=== PATIENT | female | born 1930 | race Caucasian/White ===

== ENCOUNTER 2017-09-11 13:20 | Inpatient (IN) | payer MEDICARE, MEDICAID ==
[2017-09-11 14:56] LABS: ADD MAN DIFF? NO
[2017-09-11 15:01] LABS: BASOPHILS % 0.2 % (0.0-2.0); EOSINOPHILS % 0.1 % (0.0-7.0); HEMOGLOBIN 12.7 g/dl (12.0-16.0); LYMPHOCYTES # 1.1 10^3/ul (0.8-2.9); LYMPHOCYTES % 8.9 % (15.0-51.0); MEAN CORPUSCULAR HEMOGLOBIN 30.5 pg (29.0-33.0); MEAN CORPUSCULAR HGB CONC 33.4 g/dl (32.0-37.0); MEAN CORPUSCULAR VOLUME 91.1 fl (82.0-101.0); MEAN PLATELET VOLUME 10.2 fl (7.4-10.4); MONOCYTE # 0.5 10^3/ul (0.3-0.9); MONOCYTES % 3.8 % (0.0-11.0); NEUTROPHIL # 10.6 10^3/ul (1.6-7.5); NEUTROPHILS % 86.3 % (39.0-77.0); PLATELET COUNT 321 10^3/UL (140-415); RED BLOOD COUNT 4.17 10^6/ul (4.20-5.40); RED CELL DISTRIBUTION WIDTH 14.8 % (11.5-14.5)
[2017-09-11 15:01] LABS: WHITE BLOOD COUNT 12.3 10^3/ul (4.8-10.8)
[2017-09-11] MEDS: ASPIRIN 325 MG TAB PO (15:01)
[2017-09-11 15:15] LABS: INR 0.93; PROTIME 12.5 Sec (11.9-14.9)
[2017-09-11 15:16] LABS: PARTIAL THROMBOPLASTIN TIME 24.8 Sec (25.0-35.0)
[2017-09-11 15:22] LABS: ALANINE AMINOTRANSFERASE 29 IU/L (13-69); ALBUMIN 3.4 g/dl (3.3-4.9); ALBUMIN/GLOBULIN RATIO 1.06; ALKALINE PHOSPHATASE 119 IU/L (42-121); ANION GAP 11 (8-16); ASPARTATE AMINO TRANSFERASE 28 IU/L (15-46); BILIRUBIN,INDIRECT 0.1 mg/dl (0-1.1); BILIRUBIN,TOTAL 0.1 mg/dl (0.2-1.3); BLOOD UREA NITROGEN 15 mg/dl (7-20); CALCIUM 11.3 mg/dl (8.4-10.2); CARBON DIOXIDE 29 mmol/L (21-31); CHLORIDE 101 mmol/L (97-110); CREATININE 1.01 mg/dl (0.44-1.00); GLUCOSE 132 mg/dl (70-220); SODIUM 137 mmol/L (135-144); TOTAL PROTEIN 6.6 g/dl (6.1-8.1)
[2017-09-11 15:32] LABS: TROPONIN-I 0.018 ng/ml (0.00-0.12)
[2017-09-11 17:46] LABS: ADD UMIC YES; UR ASCORBIC ACID NEGATIVE (NEGATIVE); UR BACTERIA FEW /HPF (NONE SEEN); UR BILIRUBIN (Dip) NEGATIVE (NEGATIVE); UR BLOOD (Dip) NEGATIVE (NEGATIVE); UR CLARITY SLIGHTLY CLOUDY (CLEAR); UR COLOR YELLOW (YELLOW); UR GLUCOSE (Dip) NEGATIVE (NEGATIVE); UR KETONES (Dip) NEGATIVE (NEGATIVE); UR LEUKOCYTE ESTERASE (Dip) 1+ Leu/ul (NEGATIVE); UR NITRITE (Dip) NEGATIVE (NEGATIVE); UR RBC 1 /HPF (0-5); UR SPECIFIC GRAVITY (Dip) 1.009 (1.003-1.030); UR TOTAL PROTEIN (Dip) 1+ mg/dl (NEGATIVE); UR UROBILINOGEN (Dip) NEGATIVE (NEGATIVE); UR WBC 13 /HPF (0-5)
[2017-09-11] MEDS: HYDROCODONE/APAP (5/325) TAB PO (18:00)
[2017-09-11] MEDS: LABETALOL HCL 20MG INJ IV ×2 (18:33→20:22)
[2017-09-11] MEDS: CEFTRIAXONE 1 GM/50 ML (PMX) 50 ML IVPB (19:34)
[2017-09-11 20:06] LABS: B-TYPE NATRIURETIC PEPTIDE 5560 PG/ML (0-450)
[2017-09-11] MEDS ORDERED: ONDANSETRON 4 MG INJ IV ×2 (21:30)
[2017-09-11] MEDS ORDERED: NACL 0.9% 3 ML SYG IV (21:30)
[2017-09-11] MEDS ORDERED: ACETAMINOPHEN 325 MG TAB PO (21:30)
[2017-09-11] MEDS: FUROSEMIDE 40 MG INJ IV (21:39)
[2017-09-11 22:24] LABS: CREATINE KINASE < 20 IU/L (23-200)
[2017-09-11 22:29] LABS: CK-MB 0.77 ng/ml (0.0-2.4); TROPONIN-I 0.039 ng/ml (0.00-0.12)
[2017-09-11] MEDS: hydrALAzine 20 MG INJ IV (23:11)
[2017-09-11] MEDS: ACETAMINOPHEN 325 MG TAB PO (23:11)
[2017-09-12 03:56] LABS: CREATINE KINASE < 20 IU/L (23-200)
[2017-09-12 03:59] LABS: CK-MB 0.65 ng/ml (0.0-2.4); TROPONIN-I 0.037 ng/ml (0.00-0.12)
[2017-09-12] MEDS: ACETAMINOPHEN 325 MG TAB PO ×2 (05:50→11:06)
[2017-09-12 06:28] LABS: ADD MAN DIFF? NO
[2017-09-12 06:31] LABS: BASOPHILS % 0.2 % (0.0-2.0); EOSINOPHILS % 0.2 % (0.0-7.0); HEMATOCRIT 33.4 % (37.0-47.0); HEMOGLOBIN 11.2 g/dl (12.0-16.0); LYMPHOCYTES # 1.9 10^3/ul (0.8-2.9); LYMPHOCYTES % 16.8 % (15.0-51.0); MEAN CORPUSCULAR HEMOGLOBIN 30.6 pg (29.0-33.0); MEAN CORPUSCULAR HGB CONC 33.5 g/dl (32.0-37.0); MEAN CORPUSCULAR VOLUME 91.3 fl (82.0-101.0); MEAN PLATELET VOLUME 10.2 fl (7.4-10.4); MONOCYTE # 0.7 10^3/ul (0.3-0.9); MONOCYTES % 5.9 % (0.0-11.0); NEUTROPHIL # 8.5 10^3/ul (1.6-7.5); NEUTROPHILS % 76.4 % (39.0-77.0); PLATELET COUNT 277 10^3/UL (140-415); RED BLOOD COUNT 3.66 10^6/ul (4.20-5.40); RED CELL DISTRIBUTION WIDTH 14.8 % (11.5-14.5)
[2017-09-12 06:31] LABS: WHITE BLOOD COUNT 11.1 10^3/ul (4.8-10.8)
[2017-09-12 07:09] LABS: ALANINE AMINOTRANSFERASE 22 IU/L (13-69); ALBUMIN 2.8 g/dl (3.3-4.9); ALKALINE PHOSPHATASE 98 IU/L (42-121); ANION GAP 11 (8-16); ASPARTATE AMINO TRANSFERASE 28 IU/L (15-46); BLOOD UREA NITROGEN 17 mg/dl (7-20); CALCIUM 10.3 mg/dl (8.4-10.2); CARBON DIOXIDE 27 mmol/L (21-31); CHLORIDE 101 mmol/L (97-110); CHOL/HDL RATIO 1.8 RATIO; CHOLESTEROL 136 mg/dl (100-200); CREATININE 1.06 mg/dl (0.44-1.00); GLUCOSE 102 mg/dl (70-220); HDL CHOLESTEROL 74 mg/dl (33-92); LDL CHOLESTEROL,CALCULATED 45 mg/dl; MAGNESIUM 1.3 mg/dl (1.7-2.5); POTASSIUM 3.8 mmol/L (3.5-5.1); SODIUM 135 mmol/L (135-144); TOTAL PROTEIN 5.6 g/dl (6.1-8.1); TRIGLYCERIDES 83 mg/dl (0-149)
[2017-09-12 08:00] LABS: HEMOGLOBIN A1C 4.8 % (0-5.9)
[2017-09-12] MEDS: hydrALAzine 20 MG INJ IV (08:34)
[2017-09-12] MEDS ORDERED: hydrALAzine 20 MG INJ IV (09:30)
[2017-09-12] MEDS: SOD CHLORIDE 0.9% 1,000 ML IV (09:39)
[2017-09-12 10:09] LABS: FREE THYROXINE INDEX (Calc) 3.75 ug/ml (0.65-3.89); T3 UPTAKE 37.5 % (23.5-40.5)
[2017-09-12] MEDS ORDERED: CEFTRIAXONE 1 GM/50 ML (PMX) 50 ML IVPB (19:00)
[2017-09-13 17:17] LABS: PTH CALCIUM 9.9 mg/dL (8.6-10.4)
[2017-09-14 08:18] LABS: PTH INTACT 110 pg/mL (14-64)
[2017-09-16 20:35] LABS: RENIN, PLASMA 1.02 ng/mL/h (0.25-5.82)
== END 2017-09-12 13:45 | disposition home or self-care (01) | DRG 913 ==
LOC: TEL 21:11 → FTE 09-12 09:20
DX: S29.8XXA Other specified injuries of thorax, initial encounter (principal); I50.31 Acute diastolic (congestive) heart failure; N39.0 Urinary tract infection, site not specified; M25.551 Pain in right hip; W18.2XXA Fall in (into) shower or empty bathtub, initial encounter; Y93.9 Activity, unspecified; M25.552 Pain in left hip; M54.9 Dorsalgia, unspecified; I25.10 Atherosclerotic heart disease of native coronary artery without angina pectoris; M85.80 Other specified disorders of bone density and structure, unspecified site; I16.0 Hypertensive urgency; R41.82 Altered mental status, unspecified; M54.2 Cervicalgia; D30.01 Benign neoplasm of right kidney; E04.1 Nontoxic single thyroid nodule; I11.0 Hypertensive heart disease with heart failure
CPT/HCPCS: 36415; 70450; 71045; 71110; 71250; 72100; 72125; 73520; 76536; 80053; 80061; 81001; 82533; 82550; 82553; 83036; 83735; 83880; 83970; 84244; 84436; 84443; 84479; 84484; 85025; 85610; 85730; 87086; 93005; 93306; 93880; 96374; 96375; 96376; 99291-25

== ENCOUNTER 2017-11-18 15:10 | Inpatient (IN) | payer MEDICARE, MEDICAID ==
[2017-11-18] MEDS: SOD CHLORIDE 0.9% 250 ML IV (16:35)
[2017-11-18] MEDS: FUROSEMIDE 40 MG INJ IV (16:35)
[2017-11-18 16:37] LABS: ADD MAN DIFF? NO
[2017-11-18 16:39] LABS: WHITE BLOOD COUNT 9.7 10^3/ul (4.8-10.8)
[2017-11-18 16:39] LABS: BASOPHILS % 0.1 % (0.0-2.0); EOSINOPHILS % 0.1 % (0.0-7.0); HEMATOCRIT 28.8 % (37.0-47.0); HEMOGLOBIN 9.8 g/dl (12.0-16.0); LYMPHOCYTES # 1.7 10^3/ul (0.8-2.9); MEAN CORPUSCULAR HEMOGLOBIN 30.9 pg (29.0-33.0); MEAN CORPUSCULAR VOLUME 90.9 fl (82.0-101.0); MEAN PLATELET VOLUME 10.5 fl (7.4-10.4); MONOCYTE # 0.6 10^3/ul (0.3-0.9); MONOCYTES % 5.8 % (0.0-11.0); NEUTROPHIL # 7.4 10^3/ul (1.6-7.5); NEUTROPHILS % 76.4 % (39.0-77.0); PLATELET COUNT 219 10^3/UL (140-415); RED BLOOD COUNT 3.17 10^6/ul (4.20-5.40); RED CELL DISTRIBUTION WIDTH 14.7 % (11.5-14.5)
[2017-11-18 17:00] LABS: INR 0.98; PARTIAL THROMBOPLASTIN TIME 30.8 Sec (25.0-35.0); PROTIME 13.1 Sec (11.9-14.9)
[2017-11-18 17:09] LABS: ALANINE AMINOTRANSFERASE 29 IU/L (13-69); ALBUMIN 2.6 g/dl (3.3-4.9); ALBUMIN/GLOBULIN RATIO 0.89; ALKALINE PHOSPHATASE 104 IU/L (42-121); ANION GAP 11 (8-16); ASPARTATE AMINO TRANSFERASE 26 IU/L (15-46); BILIRUBIN,INDIRECT 0.1 mg/dl (0-1.1); BILIRUBIN,TOTAL 0.1 mg/dl (0.2-1.3); BLOOD UREA NITROGEN 31 mg/dl (7-20); CARBON DIOXIDE 29 mmol/L (21-31); CHLORIDE 100 mmol/L (97-110); CREATININE 1.01 mg/dl (0.44-1.00); GLUCOSE 138 mg/dl (70-220); POTASSIUM 4.3 mmol/L (3.5-5.1); SODIUM 136 mmol/L (135-144); TOTAL PROTEIN 5.5 g/dl (6.1-8.1)
[2017-11-18 17:19] LABS: B-TYPE NATRIURETIC PEPTIDE 4960 PG/ML (0-450); TROPONIN-I < 0.012 ng/ml (0.00-0.12)
[2017-11-18] MEDS ORDERED: MAGNESIUM HYDROXIDE 30ML CUP PO (18:00)
[2017-11-18] MEDS ORDERED: NACL 0.9% 3 ML SYG IV (18:00)
[2017-11-18] MEDS ORDERED: ONDANSETRON 4 MG INJ IV ×2 (18:00)
[2017-11-18] MEDS ORDERED: BISACODYL (EC) 5 MG TAB PO (18:00)
[2017-11-18] MEDS ORDERED: ACETAMINOPHEN 325 MG TAB PO (18:00)
[2017-11-18] MEDS ORDERED: morphine 2 MG INJ IV (18:00)
[2017-11-18] MEDS ORDERED: HYDROCODONE/APAP (5/325) TAB PO (18:00)
[2017-11-18] MEDS: LIDOCAINE/MYLANTA 40 ML BTL PO (19:15)
[2017-11-18] MEDS: FAMOTIDINE 20 MG TAB PO (19:16)
[2017-11-18] MEDS: PANTOPRAZOLE 40 MG INJ IV (19:17)
[2017-11-18] MEDS: METOPROLOL 25 MG TAB PO (20:37)
[2017-11-18] MEDS: SUCRALFATE (100 MG/ML) 10ML CUP PO (20:39)
[2017-11-18 23:05] LABS: CREATINE KINASE < 20 IU/L (23-200)
[2017-11-18 23:16] LABS: CK-MB 0.54 ng/ml (0.0-2.4)
[2017-11-18 23:18] LABS: TROPONIN-I < 0.012 ng/ml (0.00-0.12)
[2017-11-19] MEDS: PANTOPRAZOLE (EC) 40 MG TAB PO (06:38)
[2017-11-19 07:45] LABS: ADD MAN DIFF? NO
[2017-11-19 07:53] LABS: WHITE BLOOD COUNT 8.9 10^3/ul (4.8-10.8)
[2017-11-19 07:53] LABS: BASOPHILS % 0.2 % (0.0-2.0); EOSINOPHILS % 0.5 % (0.0-7.0); HEMATOCRIT 29.3 % (37.0-47.0); HEMOGLOBIN 9.9 g/dl (12.0-16.0); LYMPHOCYTES # 1.8 10^3/ul (0.8-2.9); LYMPHOCYTES % 19.7 % (15.0-51.0); MEAN CORPUSCULAR HGB CONC 33.8 g/dl (32.0-37.0); MEAN CORPUSCULAR VOLUME 91.8 fl (82.0-101.0); MEAN PLATELET VOLUME 10.7 fl (7.4-10.4); MONOCYTE # 0.7 10^3/ul (0.3-0.9); MONOCYTES % 8.2 % (0.0-11.0); NEUTROPHIL # 6.3 10^3/ul (1.6-7.5); NEUTROPHILS % 70.8 % (39.0-77.0); PLATELET COUNT 214 10^3/UL (140-415); RED BLOOD COUNT 3.19 10^6/ul (4.20-5.40); RED CELL DISTRIBUTION WIDTH 14.6 % (11.5-14.5)
[2017-11-19 08:10] LABS: IRON 29 ug/dl (35-150)
[2017-11-19 08:12] LABS: CREATINE KINASE < 20 IU/L (23-200)
[2017-11-19 08:15] LABS: ALANINE AMINOTRANSFERASE 28 IU/L (13-69); ALBUMIN 2.6 g/dl (3.3-4.9); ALBUMIN/GLOBULIN RATIO 0.96; ALKALINE PHOSPHATASE 102 IU/L (42-121); ANION GAP 11 (8-16); ASPARTATE AMINO TRANSFERASE 26 IU/L (15-46); BILIRUBIN,INDIRECT 0.1 mg/dl (0-1.1); BILIRUBIN,TOTAL 0.1 mg/dl (0.2-1.3); BLOOD UREA NITROGEN 32 mg/dl (7-20); CALCIUM 9.8 mg/dl (8.4-10.2); CARBON DIOXIDE 33 mmol/L (21-31); CHLORIDE 99 mmol/L (97-110); CHOL/HDL RATIO 1.9 RATIO; CHOLESTEROL 122 mg/dl (100-200); CREATININE 0.99 mg/dl (0.44-1.00); GLUCOSE 69 mg/dl (70-220); HDL CHOLESTEROL 63 mg/dl (33-92); LDL CHOLESTEROL,CALCULATED 49 mg/dl; MAGNESIUM 1.8 mg/dl (1.7-2.5); POTASSIUM 5.2 mmol/L (3.5-5.1); SODIUM 138 mmol/L (135-144); TOTAL PROTEIN 5.3 g/dl (6.1-8.1); TRIGLYCERIDES 52 mg/dl (0-149)
[2017-11-19 08:19] LABS: % IRON SATURATION 17 % SAT (22-52); TOTAL IRON BINDING CAPACITY 168 ug/dl (241-421)
[2017-11-19 08:25] LABS: CK-MB 0.47 ng/ml (0.0-2.4); TROPONIN-I 0.016 ng/ml (0.00-0.12)
[2017-11-19] MEDS: SUCRALFATE (100 MG/ML) 10ML CUP PO ×4 (08:46→21:57)
[2017-11-19] MEDS: METOPROLOL 25 MG TAB PO ×2 (08:47→21:57)
[2017-11-19] MEDS: CHOLECALCIFEROL 2,000 UNIT CAP PO (08:47)
[2017-11-19] MEDS ORDERED: ENOXAPARIN 100 MG/ML SYG SC (13:00)
[2017-11-19] MEDS: ENOXAPARIN 60 MG/0.6 ML SYG SC ×2 (14:59→22:01)
[2017-11-19] MEDS: FUROSEMIDE 20 MG INJ IV (17:03)
[2017-11-19] MEDS: ACETAMINOPHEN 325 MG TAB PO (17:03)
[2017-11-20] MEDS: FUROSEMIDE 20 MG TAB PO ×2 (05:42→18:06)
[2017-11-20] MEDS: PANTOPRAZOLE (EC) 40 MG TAB PO (05:42)
[2017-11-20] MEDS: METOPROLOL 25 MG TAB PO ×2 (08:47→20:32)
[2017-11-20] MEDS: CHOLECALCIFEROL 2,000 UNIT CAP PO (08:47)
[2017-11-20] MEDS: SUCRALFATE (100 MG/ML) 10ML CUP PO ×4 (08:47→20:32)
[2017-11-20] MEDS: ENOXAPARIN 60 MG/0.6 ML SYG SC (08:51)
[2017-11-20] MEDS ORDERED: VITAMIN A & D 5 GM OINT PACKET TOP (16:08)
[2017-11-20] MEDS: RIVAROXABAN 15 MG TABLET PO (18:06)
[2017-11-21] MEDS: PANTOPRAZOLE (EC) 40 MG TAB PO (06:47)
[2017-11-21] MEDS: FUROSEMIDE 20 MG TAB PO ×2 (06:47→17:19)
[2017-11-21] MEDS: RIVAROXABAN 15 MG TABLET PO ×2 (08:24→17:19)
[2017-11-21] MEDS: SUCRALFATE (100 MG/ML) 10ML CUP PO ×4 (08:24→20:54)
[2017-11-21] MEDS: METOPROLOL 25 MG TAB PO ×2 (08:25→20:54)
[2017-11-21] MEDS: CHOLECALCIFEROL 2,000 UNIT CAP PO (08:25)
[2017-11-21 08:51] LABS: ADD MAN DIFF? NO
[2017-11-21 08:58] LABS: WHITE BLOOD COUNT 9.3 10^3/ul (4.8-10.8)
[2017-11-21 08:58] LABS: BASOPHILS % 0.2 % (0.0-2.0); EOSINOPHILS # 0.1 10^3/ul (0.0-0.5); EOSINOPHILS % 0.5 % (0.0-7.0); HEMATOCRIT 30.3 % (37.0-47.0); HEMOGLOBIN 10.2 g/dl (12.0-16.0); LYMPHOCYTES # 1.8 10^3/ul (0.8-2.9); LYMPHOCYTES % 19.3 % (15.0-51.0); MEAN CORPUSCULAR HEMOGLOBIN 31.2 pg (29.0-33.0); MEAN CORPUSCULAR HGB CONC 33.7 g/dl (32.0-37.0); MEAN CORPUSCULAR VOLUME 92.7 fl (82.0-101.0); MEAN PLATELET VOLUME 10.4 fl (7.4-10.4); MONOCYTE # 0.7 10^3/ul (0.3-0.9); MONOCYTES % 7.4 % (0.0-11.0); NEUTROPHIL # 6.7 10^3/ul (1.6-7.5); PLATELET COUNT 256 10^3/UL (140-415); RED BLOOD COUNT 3.27 10^6/ul (4.20-5.40); RED CELL DISTRIBUTION WIDTH 14.6 % (11.5-14.5)
[2017-11-21 09:17] LABS: ANION GAP 12 (8-16); BLOOD UREA NITROGEN 37 mg/dl (7-20); CALCIUM 9.3 mg/dl (8.4-10.2); CARBON DIOXIDE 29 mmol/L (21-31); CHLORIDE 101 mmol/L (97-110); CREATININE 0.89 mg/dl (0.44-1.00); GLUCOSE 67 mg/dl (70-220); POTASSIUM 3.2 mmol/L (3.5-5.1); SODIUM 139 mmol/L (135-144)
[2017-11-21 09:17] LABS: MAGNESIUM 1.6 mg/dl (1.7-2.5)
[2017-11-21] MEDS: POTASSIUM CHLORIDE (SR) 20 MEQ TAB PO (13:18)
[2017-11-21] MEDS: MAGNESIUM SULFATE 2 GM/50 ML 50 ML IVPB (14:42)
[2017-11-21] MEDS: LORAZEPAM 0.5 MG TAB PO (20:54)
[2017-11-22] MEDS: PANTOPRAZOLE (EC) 40 MG TAB PO (07:01)
[2017-11-22] MEDS: RIVAROXABAN 15 MG TABLET PO (08:30)
[2017-11-22] MEDS: CHOLECALCIFEROL 2,000 UNIT CAP PO (08:30)
[2017-11-22] MEDS: SUCRALFATE (100 MG/ML) 10ML CUP PO ×2 (08:30→12:12)
[2017-11-22] MEDS: METOPROLOL 25 MG TAB PO (08:31)
[2017-11-22] MEDS: FUROSEMIDE 20 MG TAB PO (08:31)
== END 2017-11-22 16:08 | DRG 292 ==
LOC: E/R 15:10 → TEL 17:33
DX: I11.0 Hypertensive heart disease with heart failure (principal); I82.431 Acute embolism and thrombosis of right popliteal vein; E86.0 Dehydration; R00.1 Bradycardia, unspecified; I82.491 Acute embolism and thrombosis of other specified deep vein of right lower extremity; D64.9 Anemia, unspecified; I35.0 Nonrheumatic aortic (valve) stenosis; I50.23 Acute on chronic systolic (congestive) heart failure; I25.10 Atherosclerotic heart disease of native coronary artery without angina pectoris; K29.70 Gastritis, unspecified, without bleeding; Z95.0 Presence of cardiac pacemaker; Z87.891 Personal history of nicotine dependence; Z95.828 Presence of other vascular implants and grafts; Z90.49 Acquired absence of other specified parts of digestive tract
CPT/HCPCS: 36415; 71045; 80048; 80053; 80061; 82550; 82553; 83540; 83735; 83880; 84484; 85025; 85610; 85730; 93005; 93306; 93970; 96374; 96375; 97116; 97162; 97166; 97530; 97535; 99285-25; G0378; J1940